=== PATIENT | female | born 2000 ===

== ENCOUNTER 2022-02-07 00:22 | Emergency (ER) | payer OTHER, SELFPAY ==
[2022-02-07 00:34] VITALS: BP 128/76; PULSE 70; RESP 16; TEMP 36.2; O2SAT 99; BMI 47.4
--- NOTE | 2022-02-07 01:07 | ED_ITS ---
HPI - Wound/Laceration General Chief Complaint: Wound/Laceration Stated Complaint: Cut hand Time Seen by Provider: 02/07/22 00:43 Source: patient Mode of arrival: ambulatory Limitations: no limitations History of Present Illness HPI narrative: Patient comes to the emergency room complaining of a laceration to the dorsum of the right hand above the thumb. Patient states that she was trying to make a hole in her dress, trying to suture. Patient accidentally caused a laceration in her right hand. Related Data Allergies Allergy/AdvReac Type Severity Reaction Status Date / Time No Known Allergies Allergy Verified 02/07/22 00:38 Review of Systems Review of Systems: Constitutional : No Weight loss, No Fever, No Chills, No Night Sweats, No Fatigue, No Malaise ENT/Mouth : No Hearing loss, No Ear Pain, No Nasal Congestion, No Sinus Pain, No Hoarseness, No sore throat, No Rhinorrhea, No Swallowing Difficulty Eyes: No Eye Pain, No Swelling, No Redness, No Foreign Body, No Discharge, No Vision Changes Cardiovascular : No Chest Pain, No SOB, No Dyspnea on Exertion, No Orthopnea, No Edema, No Palpitations Respiratory : No Cough, No Sputum, No Wheezing, No Smoke Exposure, No Dyspnea Gastrointestinal : No Nausea, No Vomiting, No Diarrhea, No Constipation, No abdominal Pain, No Hematochezia, No Melena Genitourinary : no irregular bleeding, No Dysuria, No Urinary Frequency, No Hematuria, No Urinary Incontinence, No Urgency, No Flank Pain, No Urinary Flow Changes, No Hesitancy Musculoskeletal : No joint pain, No Myalgias, No Joint Swelling Skin : Laceration to the dorsum of the right hand on the thumb Neuro : No Weakness, No Numbness, No Paresthesias, No Loss of Consciousness, No Dizziness, No Headache Psych : No Anxiety/Panic, No Depression, No SI/HI/AH/VH, No Social Issues, Heme/Lymph: No Bruising, No Bleeding,No Lymphadenopathy Endocrine : No Polyuria, No Polydipsia, No Temperature Intolerance PMFSH Social History Social History Advance Directives: No Advance Directives Information Provided: Yes Physical Exam Vital Signs: Vital Signs: Last Vital Signs Temp 97.2 F 02/07/22 00:34 Pulse 70 02/07/22 00:34 Resp 16 02/07/22 00:34 BP 128/76 02/07/22 00:34 Pulse Ox 99 02/07/22 00:34 O2 Del Method 02/07/22 00:34 BMI result Body Mass Index 47.4 Const: Other: Appearance: Alert. Oriented X3. No acute distress. Eyes: Pupils equal, round and reactive to light. ENT: Pharynx normal. Neck: Normal inspection. Neck supple. No lymph nodes noted. No crepitus CVS: Normal heart rate and rhythm. Pulses normal. Normal S1 and S2 Respiratory: No respiratory distress. Breath sounds normal. No Wheezing. No rales Abdomen: Soft and nontender. No rigidity. No distention. Skin: Skin warm and dry. Normal skin color. Normal skin turgor. There is a 2 cm laceration to the dorsum of the right thumb Extremities: No lower extremity edema. Patient is able to flex and extend the thumb and oppose the thumb to the rest of the fingers. Neuro: Oriented X 3. No motor deficit. No sensory deficit. Moving all extremities. No slurred speech. CN 2 through 12 grossly intact Psych: calm, cooperative, normal affect Course Course Course Narrative: Five stitches were applied. Patient was given Tdap and Tylenol Procedures Laceration Laceration 1: Site: hand Side (If applicable): right Size (cm): 2 Description: linear Depth: simple, single layer Local Anesthetic: lidocaine 1% Amount of anesthesia used (mL): 8 Pre-repair: wound explored Skin layer closed with: nylon Size (cm): 5-0 Number of sutures: 5 Technique: simple, interrupted Discharge Plan Discharge Clinical Impression: Laceration Patient Disposition: Home, Self-Care Instructions: Finger Laceration (ED) Additional Instructions: Your stitches need to be removed in 7-10 days. If you see any signs of infec tion such as redness, pus drainage, please return to the emergency room. Please follow-up with your primary care physician tomorrow. If you have any worsening or new symptoms, please return to the emergency room or call 911 Stand Alone Forms: Work/School Release
[2022-02-07] MEDS: Acetaminophen 325 MG TABLET 650 MG PO (01:36)
[2022-02-07] MEDS: Diphth,Pertus(ACell),Tet Adult 0.5 ML SYRINGE IM (01:37)
--- NOTE | 2022-02-07 01:44 | PC.NURSE ---
skin pwd. pt ambulatory at time of discharge. pt medicated according to mar. pt grandmother at bedside. pt able to move digit. discharge packet and work note provided to pt. pt verbalized understanding of discharge plan
== END 2022-02-07 01:46 | disposition home or self-care (01) ==
PROVIDERS: Emergency Provider Emergency Medicine; PCP Internal Medicine
DX: S61.411A Laceration without foreign body of right hand, initial encounter (principal); W26.0XXA Contact with knife, initial encounter; Y93.89 Activity, other specified; Y92.019 Unspecified place in single-family (private) house as the place of occurrence of the external cause; Y99.9 Unspecified external cause status; Z23 Encounter for immunization
CPT/HCPCS: 12001; 90471; 90715; 99284

== ENCOUNTER 2022-06-04 19:12 | Emergency (ER) | payer OTHER, SELFPAY ==
[2022-06-04 20:30] VITALS: BP 119/73; PULSE 116; RESP 20; TEMP 38.5; O2SAT 97; BMI 38.9
--- NOTE | 2022-06-04 20:30 | ED_ITS ---
HPI - General Adult General Chief complaint: General Medical <TELMA Satnamaria - Last Filed: 06/04/22 20:33> Stated complaint: Bodyaches, vomiting, fever <TELMA Santamaria - Last Filed: 06/04/22 20:33> Time Seen by Provider: 06/04/22 22:46 <TELMA Santamaria - Last Filed: 06/04/22 20:33> Source: patient, RN notes reviewed and old records reviewed <Shaun Canchola - Last Filed: 06/04/22 23:04> Mode of arrival: ambulatory <Shaun Canchola - Last Filed: 06/04/22 23:04> Limitations: no limitations <Shaun Canchola - Last Filed: 06/04/22 23:04> History of Present Illness HPI narrative: 21-year-old female who denies any past medical history presents for evaluation of fevers, chills, body aches, headache and nausea. Her symptoms started yesterday morning. She reports that her mother was positive for influenza a although she has not seen her since late last week She has been taking Tylenol at home and reports that she has had a fever as high as 103. She reports some cough but denies shortness of breath Denies any significant abdominal pain, urinary complaints <Shaun Canchola - Last Filed: 06/04/22 23:04> Related Data Home medications: Previous Rx's Medication Instructions Recorded ibuprofen 600 mg tablet 600 mg PO Q6H PRN fever #20 tabs 06/04/22 ondansetron 4 mg disintegrating 4 mg PO Q8H PRN nausea and 06/04/22 tablet vomiting #20 tabs oseltamivir 75 mg capsule (Tamiflu) 75 mg PO BID 5 days #10 caps 06/04/22 <TELMA Santamaria - Last Filed: 06/04/22 20:33> Allergies/adverse reactions: Allergies Allergy/AdvReac Type Severity Reaction Status Date / Time No Known Allergies Allergy Verified 06/04/22 20:35 <TELMA Santamaria - Last Filed: 06/04/22 20:33> Review of Systems Constitutional: Constitutional: Reports as per HPI, Reports body ache(s), Reports chills, Reports fatigue, Reports fever(s), Reports headache(s), Reports lethargy and Reports malaise <Shaun Canchola Last Filed: 06/04/22 23:04> ENT: Reports headache(s) <Shaunkaty Morel Last Filed: 06/04/22 23:04> Cardiovascular: Cardiovascular: Denies chest pain and Denies dyspnea <Shaun Morel Last Filed: 06/04/22 23:04> Respiratory: Respiratory: Reports cough and Denies dyspnea <Shaunkaty Morel Last Filed: 06/04/22 23:04> Gastrointestinal: Gastrointestinal: Denies abdominal pain, Denies constipation, Reports nausea and Reports vomiting <Shaunkaty Canchola Harvey ed: 06/04/22 23:04> Genitourinary: Genitourinary: Denies dysuria <Shaun Canchola Last Filed: 06/04/22 23:04> Neurologic: Reports headache(s) and Denies focal weakness <Shaun Canchola Last Filed: 06/04/22 23:04> Endocrine: Endocrine: Reports fatigue <Shaun Morel Last Filed: 06/04/22 23:04> [facility] Social History Social History: Social History Substance Use Type: Marijuana Advance Directives: No Advance Directives Information Provided: No <TELMA Santamaria - Last Filed: 06/04/22 20:33> Physical Exam ED Vital Signs: Vital Signs - 24 hr 06/04/22 20:30 06/04/22 22:17 Temperature 101.3 F H 103.2 F H Pulse Rate 116 H 99 Respiratory Rate 20 22 H Blood Pressure 119/73 Pulse Oximetry 97 99 Oxygen Delivery Method Room Air Room Air BMI result Body Mass Index 38.9 <TELMA Santamaria - Last Filed: 06/04/22 20:33> Vital Signs - 24 hr 06/04/22 20:30 06/04/22 22:17 Temperature 101.3 F H 103.2 F H Pulse Rate 116 H 99 Respiratory Rate 20 22 H Blood Pressure 119/73 Pulse Oximetry 97 99 Oxygen Delivery Method Room Air Room Air BMI result Body Mass Index 38.9 <Shaun Canchola - Last Filed: 06/04/22 23:04> Const General: healthy appearing, comfortable, no acute distress, alert and awake <Shanu Last Filed: 06/04/22 23:04> Nutritional Appearance: well nourished < Last Filed: 06/04/22 23:04> Orientation/consciousness: patient oriented x3 < Last Filed: 06/04/22 23:04> HENMT Head: Yes normocephalic and Yes atraumatic < Last Filed: 06/04/22 23:04> Throat: Yes posterior oropharynx normal < Last Filed: 06/04/22 23:04> Eyes Eyelids: Yes eyelids normal < Last Filed: 06/04/22 23:04> Conjunctivae: conjunctivae normal < Last Filed: 06/04/22 23:04> Sclerae: sclerae normal < Last Filed: 06/04/22 23:04> Corneas: corneas normal < Last Filed: 06/04/22 23:04> Pupils: Equal, round and reactive pupils present < Last Filed: 06/04/22 23:04> EOM: EOMs intact bilaterally < Last Filed: 06/04/22 23:04> Neck Neck: Yes full ROM < Last Filed: 06/04/22 23:04> Resp Effort & Inspection: normal respiratory effort, able to speak in complete sentences, no audible wheezes and not labored < Last Filed: 06/04/22 23:04> Auscultation: clear to auscultation bilaterally < Last Filed: 06/04/22 23:04> Cardio Rate: regular rate < Last Filed: 06/04/22 23:04> Rhythm: regular rhythm < Last Filed: 06/04/22 23:04> GI Inspection: No distended < Filed: 06/04/22 23:04> Palpation (GI): Soft to palpation, not firm, nontender, no guarding and not rigid <Shaun LaloAdrian - Last Filed: 06/04/22 23:04> Auscultation: normoactive bowel sounds <Shaun MayAdrian - Last Filed: 06/04/22 23:04> Skin General skin exam: no rashes or lesions noted and elasticity normal <Shaun LaloAdrian - Last Filed: 06/04/22 23:04> Neuro General: patient oriented x3 <Shaun LaloAdrian - Last Filed: 06/04/22 23:04> Cranial nerves: Yes Equal, round and reactive pupils present and Yes Bilaterally intact EOM present <Shaun Canchola - Last Filed: 06/04/22 23:04> Cognition (Neuro): normal cognition <Shaun Canchola - Last Filed: 06/04/22 23:04> Extrem Other: Moving all extremities well without any obvious deformities <Shaun LaloAdrian - Last Filed: 06/04/22 23:04> Course Course Course Narrative: This is an RME: Additional HPI, ROS, PE not included below will be deferred to primary provider. 21 year old female presents with nausea, vomiting, fatigue and subjective fever since yesterday. Patient reports she took dayquil today with no improvement of symptoms, and has been taking tylenol for her feve r. Patient reports her mom tested positive for the flu last week, and she saw her last week. PE: febrile at 101.3 Plan viral testing <TELMA Santamaria - Last Filed: 06/04/22 20:33> Medications Administered Discontinued Medications Generic Name Dose Route Start Last Admin Trade Name Freq PRN Reason Stop Dose Admin Acetaminophen 650 mg 06/04/22 20:33 06/04/22 22:16 Acetaminophen 325 Mg Tablet PO 06/04/22 20:34 650 mg ONCE ONE Administration <TELMA Santamaria - Last Filed: 06/04/22 20:33> Medications Administered Discontinued Medications Generic Name Dose Route Start Last Admin Trade Name Freq PRN Reason Stop Dose Admin Acetaminophen 650 mg 06/04/22 20:33 06/04/22 22:16 Acetaminophen 325 Mg Tablet PO 06/04/22 20:34 650 mg ONCE ONE Administration <Shaun Sushant - Last Filed: 06/04/22 23:04> Medical Decision Making Medical Decision Making MDM Narrative: Patient was febrile on arrival and tachycardic to 116. She was not medicated while she is waiting the weight room and repeat temperature was a 103.2?. She was then given Tylenol and I added on ibuprofen. Her tachycardia did improve. She is not hypotensive. She is positive for influenza a which explains her symptoms. Will treat the fever and re-evaluate her vital signs. She was premedicated with Tamiflu as she is within the window. The patient can likely be safely discharged pending repeat vitals <Shaun Sushant - Last Filed: 06/04/22 23:04> Differential Diagnosis Influenza A Influenza B Pneumonia Bronchitis Sepsis COVID-19 <Shaun Canchola - Last Filed: 06/04/22 23:04> Lab Data Labs: Lab Results 06/04/22 06/04/22 Range/Units 20:38 20:38 COVID-19 (GABRIELLA) Negative (Negative) COVID-19 Clin Com See Note Influenza Type A (LISA) Positive A (Negative) Influenza Type B (LISA) Negative (Negative) Influenza A & B Note See Note <TELMA Santamaria - Last Filed: 06/04/22 20:33> Lab Results 06/04/22 06/04/22 Range/Units 20:38 20:38 COVID-19 (GABRIELLA) Negative (Negative) COVID-19 Clin Com See Note Influenza Type A (LISA) Positive A (Negative) Influenza Type B (LISA) Negative (Negative) Influenza A & B Note See Note <Shaun Canchola - Last Filed: 06/04/22 23:04> Discharge Plan Discharge Clinical Impression: Influenza A <TELMA Santamaria Last Filed: 06/04/22 20:33> Patient Disposition: Home, Self-Care <TELMA Santamaria - Last Filed: 06/04/22 20:33> Instructions: Influenza (ED) <TELMA Santamaria Last Filed: 06/04/22 20:33> Additional Instructions: Alternate ibuprofen and Tylenol every 4 hours for fevers and body aches Take Tamiflu twice daily for 5 days Use Zofran here for nausea and vomiting Drink lots of fluids Follow-up with your primary doctor <TELMA Santamaria - Last Filed: 06/04/22 20:33> Prescriptions: New ondansetron 4 mg tablet,disintegrating 4 mg PO Q8H PRN (Reason: nausea and vomiting) Qty: 20 0RF ibuprofen 600 mg tablet 600 mg PO Q6H PRN (Reason: fever) Qty: 20 0RF oseltamivir [Tamiflu] 75 mg capsule 75 mg PO BID 5 Days Qty: 10 0RF <TELMA Santamaria - Last Filed: 06/04/22 20:33>
[2022-06-04 20:55] LABS: COVID-19 Test Negative (Negative); IDNOW Serial# 55D5AD1C
[2022-06-04 20:56] LABS: IDNOW Serial# 9DB6401D; Influenza A Positive (Negative); Influenza B2 Negative (Negative)
[2022-06-04] MEDS: Acetaminophen 325 MG TABLET 650 MG PO (22:16)
[2022-06-04 22:17] VITALS: PULSE 99; RESP 22; TEMP 39.6; O2SAT 99
[2022-06-04] MEDS: Ibuprofen 800 MG TABLET PO (23:09)
[2022-06-04 23:10] VITALS: TEMP 38.7
[2022-06-04] MEDS: Oseltamivir Phosphate 75 MG CAPSULE PO (23:10)
== END 2022-06-04 23:21 | disposition home or self-care (01) ==
PROVIDERS: Physician Assistant; Emergency Provider Emergency Medicine
DX: J10.1 Influenza due to other identified influenza virus with other respiratory manifestations (principal); R50.9 Fever, unspecified; Z20.822 Contact with and (suspected) exposure to COVID-19
CPT/HCPCS: 87502; 87635; 99283; 99284

== ENCOUNTER 2023-12-15 10:37 | Emergency (ER) | payer OTHER, SELFPAY ==
[2023-12-15 10:39] VITALS: BP 127/71; PULSE 89; RESP 16; TEMP 36.2; O2SAT 96; BMI 43.3
[2023-12-15 11:30] LABS: IDNOW Serial# 08D9AD1C; Strep A Nucleic Acid Negative (Negative)
[2023-12-15 11:53] LABS: Influenza A PCR NEGATIVE (Negative); Influenza B PCR NEGATIVE (Negative); Resp Syncy Virus RNA Qual PCR NEGATIVE (Negative); SARS COV2 PCR INHOUSE NEGATIVE (Negative)
[2023-12-15 14:00] VITALS: BP 122/68; PULSE 60; RESP 14; TEMP 36.9; O2SAT 96
--- NOTE | 2023-12-15 14:51 | ED_ITS ---
HPI - General Adult General Chief complaint: Upper Respiratory Symptoms Stated complaint: sore throat Time Seen by Provider: 12/15/23 14:45 Source: patient Mode of arrival: ambulatory Limitations: no limitations History of Present Illness ED Provider: Braulio Cardona PA-C HPI narrative: 23 yold female presents to the ED for sore throat for the past 3 days. Patient states subjective fever/chills, and body aches. Patient denies any drooling or change in voice. Patient states no chest pain or shorntess of breath. Related Data Previous Rx's ?Medication ?Instructions ?Recorded ibuprofen 600 mg tablet 600 mg PO Q6H PRN fever #20 tabs 06/04/22 ondansetron 4 mg disintegrating 4 mg PO Q8H PRN nausea and 06/04/22 tablet vomiting #20 tabs oseltamivir 75 mg capsule (Tamiflu) 75 mg PO BID 5 days #10 caps 06/04/22 amoxicillin 875 mg-potassium 1 tab PO Q12H 7 days #14 tabs 12/15/23 clavulanate 125 mg tablet naproxen 500 mg tablet 500 mg PO BID PRN pain 7 days #28 12/15/23 tabs prednisone 20 mg tablet 40 mg (2 x 20 mg) PO DAILY 5 days 12/15/23 #10 tabs Allergies Allergy/AdvReac Type Severity Reaction Status Date / Time No Known Allergies Allergy Verified 12/15/23 10:41 Review of Systems 2 Review of Systems: Sore throat Yes all other systems are reviewed and are negative PMFSH Social History Social History Substance Use Type: Marijuana Advance Directives: No Advance Directives Information Provided: Yes Do you have a plan to hurt others: No Plan Physical Exam ED Vital Signs: Vital Signs - 24 hr 12/15/23 10:39 12/15/23 14:00 Temperature 97.1 F 98.5 F Pulse Rate 89 60 Respiratory Rate 16 14 Blood Pressure 127/71 122/68 Pulse Oximetry 96 96 Oxygen Delivery Method Room Air Room Air BMI result Body Mass Index 43.3 Const General: cooperative, healthy appearing, comfortable, no acute distress, well developed, alert, awake and Physically active Orientation/consciousness: patient oriented x3 HENMT Head: Yes normal to inspection, Yes No palpable skull fracture present, Yes normocephalic and Yes atraumatic Ears: hearing grossly normal bilaterally, external ears normal, TM's normal bilaterally, TM normal on the right, TM normal on the left, EAC's normal, mastoids normal and no periauricular adenopathy Throat: Yes posterior oropharynx normal, Yes uvula midline and Yes abnormal tonsil (Bilateral exudates on tonsils) Eyes General: appearance normal, both eyes and all related structures Neck Neck: Yes normal visual inspection, Yes full ROM, Yes no lymphadenopathy, Yes no meningeal signs, Yes trachea midline, Yes supple, No anterior neck swelling and No tender Chest Chest palpation & inspection: normal inspection of the chest and normal palpation of entire chest wall Resp Effort & Inspection: normal respiratory effort and able to speak in complete sentences Auscultation: clear to auscultation bilaterally Cardio Jugular venous distension: no JVD Heart sounds: S1 normal heart sound present and S2 normal heart sound present GI Inspection: Yes normal to inspection Palpation (GI): Soft to palpation, not firm, nontender, no guarding and not rigid General: No CVA tenderness and Yes no CVA tenderness Back/Spine/Pelvis Back: no CVA tenderness, No CVA tenderness and No back tenderness Skin General skin exam: no rashes or lesions noted, elasticity normal and turgor normal Neuro General: patient oriented x3, gait normal, tone normal, moves all extremities, Normal light touch and pain sensation, no meningeal signs, no focal motor deficits, CN's II-XI intact bilaterally and normal sensation to monofilament Extrem General: Yes normal to inspection, Yes full ROM and Yes capillary refill normal Psych Appearance: grossly normal, well kempt and not disheveled Medications Administered Discontinued Medications Generic Name Dose Route Start Last Admin Trade Name Kavehq PRN Reason Stop Dose Admin Dexamethasone Sodium Phosphate 8 mg 12/15/23 15:09 12/15/23 15:42 Dexamethasone Sod Phosphate 4 Mg/Ml Vial IVPUSH 12/15/23 15:10 8 mg ONCE ONE Administration Medical Decision Making Medical Decision Making MDM Narrative: Physical exam does not indicate peritonsillar abscess. COVID RSV strep negative. Will test for mono. Give Decadron 3:48pm: Patient's labs are normal. Patient has mono test negative. Patient will be treated as strep. Not suspecting peritonsillar abscess, Yg angina, retropharyngeal abscess, pneumonia, or any other life-threatening etiology. Differential Diagnosis Differential Diagnoses: The differential diagnosis associated with the presentation includes (Strep, mono, COVID, influenza, RSV) Admission/Observation Consideration of admission/observation: Escalation of care including admission/observation considered Lab Data MDM Lab Attestation statement: I reviewed the patient's lab results. 12/15/23 14:57 12/15/23 14:57 Labs: Lab Results 12/15/23 12/15/23 Range/Units 11:08 14:57 WBC 11.6 H (4.8-10.8) X10*3/uL RBC 4.52 (4.20-5.50) X10*6/uL Hgb 12.8 (12.0-16.0) g/dl Hct 37.8 (37.0-47.0) % MCV 83.6 (80.0-98.0) fL MCH 28.3 (27.0-33.0) pg MCHC 33.9 (31.0-35.0) g/dl RDW 12.7 (11.0-16.0) % Plt Count 294 (160-400) X10*3/uL MPV 9.7 (9.4-12.3) fL Immature Gran % (Auto) 0.2 (0.0-0.4) % Neut % (Auto) 76.3 H (45-73) % Lymph % (Auto) 14.2 L (20-40) % [place] % (Auto) 8.4 (2-11) % Eos % (Auto) 0.6 (0-4) % Baso % (Auto) 0.3 (0-2) % Lymph # (Auto) 1.7 (1.2-4.9) X10*3/uL [place] # (Auto) 1.0 (0.1-1.2) X10*3/uL Eos # (Auto) 0.1 (0.0-0.4) X10*3/uL Baso # (Auto) 0.0 (0.0-0.2) X10*3/uL Abs Immat Gran (auto) 0.02 (0.00-0.03) X10*3/uL Absolute Neuts (auto) 8.9 H (2.0-8.3) x10*3/uL Absolute Nucleated RBC 0.000 (0.0-0.012) X10*3/uL Nucleated RBC % (auto) 0.0 (0.0-0.2) /100WBC Sodium 139 (135-145) mmol/L Potassium 3.7 (3.3-5.1) mmol/L Chloride 107 (96-108) mmol/L Carbon Dioxide 22 (22-29) mmol/L Anion Gap 14 (12-20) BUN 8 L (9-16) mg/dL Creatinine 0.75 (0.5-1.4) mg/dL Estim Creat Clear Calc 151.1 Estimated GFR > 60 Random Glucose 89 (60-115) mg/dL Calcium 9.6 (8.4-10.2) mg/dL Total Bilirubin 1.1 H (0.0-1.0) mg/dL AST 18 (5-31) U/L ALT 7 (0-31) U/L Alkaline Phosphatase 78 (39-117) U/L Total Protein 8.2 H (6.5-8.0) g/dL Albumin 4.3 (3.5-5.0) g/dL Monoscreen Negative (Negative) Influenza Type A (PCR) NEGATIVE (Negative) Influenza Type B (PCR) NEGATIVE (Negative) RSV RNA Qual (PCR) NEGATIVE (Negative) SARS-CoV-2 RNA (RT-PCR) NEGATIVE (Negative) S. pyogenes GrpA LISA Negative (Negative) Independent Historian Clinical information obtained from an independent historian. History obtained from or confirmed by: Other (Patient) External Record Review External record reviewed: Other (prior vistis) Prescription Management I considered prescription management with: Antibiotic Discharge Plan Discharge Clinical Impression: Pharyngitis Patient Disposition: Home, Self-Care Instructions: Pharyngitis (ED) Additional Instructions: You will be discharged with antibiotics and steroids. Return to the ED immediately for any drooling, change in voice, chest pain, shortness of breath, neck swelling, inability tolerate solid food/liquid, or any other concerning symptoms. Recommend follow up with primary care provider and ENT referral Prescriptions: New amoxicillin-pot clavulanate 875-125 mg tablet 1 tab PO Q12H 7 Days Qty: 14 0RF prednisone 20 mg tablet 40 mg PO DAILY 5 Days Qty: 10 0RF naproxen 500 mg tablet 500 mg PO BID PRN (Reason: pain) 7 Days Qty: 28 0RF No Action ondansetron 4 mg tablet,disintegrating 4 mg PO Q8H PRN (Reason: nausea and vomiting) Qty: 20 0RF ibuprofen 600 mg tablet 600 mg PO Q6H PRN (Reason: fever) Qty: 20 0RF oseltamivir [Tamiflu] 75 mg capsule 75 mg PO BID 5 Days Qty: 10 0RF Referrals: Leon Sanchez [Physician] - (recurrent pharyngitits, tonsilitils) Stand Alone Forms: Work/School Release Discharge Date/Time: 12/15/23 16:02 Print Language: Iranian
[2023-12-15 15:03] LABS: Basophils Percent Auto 0.3 % (0-2); Eosinophils Absolute Auto 0.1 X10*3/uL (0.0-0.4); Eosinophils Percent Auto 0.6 % (0-4); Hematocrit 37.8 % (37.0-47.0); Hemoglobin 12.8 g/dl (12.0-16.0); Imm Gran Abs Auto 0.02 X10*3/uL (0.00-0.03); Imm Gran Pct Auto 0.2 % (0.0-0.4); Lymphocytes Absolute Auto 1.7 X10*3/uL (1.2-4.9); Lymphocytes Percent Auto 14.2 % (20-40); MANUAL DIFF FLAG NO; Mean Corpuscular HGB Conc 33.9 g/dl (31.0-35.0); Mean Corpuscular Hemoglobin 28.3 pg (27.0-33.0); Mean Corpuscular Volume 83.6 fL (80.0-98.0); Mean Platelet Volume 9.7 fL (9.4-12.3); Monocytes Percent Auto 8.4 % (2-11); Neutrophils Absolute Auto 8.9 x10*3/uL (2.0-8.3); Neutrophils Percent Auto 76.3 % (45-73); Platelet Count 294 X10*3/uL (160-400); Red Blood Count 4.52 X10*6/uL (4.20-5.50); Red Cell Distribution Width 12.7 % (11.0-16.0); White Blood Count 11.6 X10*3/uL (4.8-10.8)
[2023-12-15 15:17] LABS: Alanine Aminotransferase 7 U/L (0-31); Albumin Level 4.3 g/dL (3.5-5.0); Alkaline Phosphatase 78 U/L (39-117); Anion Gap 14 (12-20); Aspartate Amino Transferase 18 U/L (5-31); Bilirubin Total 1.1 mg/dL (0.0-1.0); Blood Urea Nitrogen 8 mg/dL (9-16); Calcium 9.6 mg/dL (8.4-10.2); Carbon Dioxide 22 mmol/L (22-29); Chloride 107 mmol/L (96-108); Creatinine Clr Calc Pharmacy 151.1; Estimated Glomerular Filt Rate > 60; Glucose Random 89 mg/dL (60-115); Potassium 3.7 mmol/L (3.3-5.1); Sodium 139 mmol/L (135-145); Total Protein 8.2 g/dL (6.5-8.0)
[2023-12-15 15:19] LABS: Monotest Negative (Negative)
[2023-12-15] MEDS: dexAMETHasone sod phosphate 4 MG/ML VIAL 8 MG IVPUSH (15:42)
--- NOTE | 2023-12-15 15:43 | PC.NURSE ---
patient a&ox3, vitals stable, swabs previously obtained, pt medicated per order, call pro within reach, will continue to monitor
== END 2023-12-15 16:02 | disposition home or self-care (01) ==
PROVIDERS: Physician Assistant; Physician Assistant Medical; Emergency Provider Emergency Medicine
DX: J02.9 Acute pharyngitis, unspecified (principal); Z03.818 Encounter for observation for suspected exposure to other biological agents ruled out
CPT/HCPCS: 0241U; 36415; 80053; 85025; 86308; 87651; 99283; J1100